=== PATIENT | female | born 1945 | race Two or more races ===

== ENCOUNTER 2024-05-11 21:30 | Emergency (ER) | payer OTHER ==
[~2024-05-11] VITALS: Ht 170.2 cm; Wt 54.0 kg
[2024-05-11 21:38] VITALS: BP 126/65; PULSE 66; RESP 18; O2SAT 95
== END 2024-05-12 03:52 | disposition left against medical advice (07) ==
LOC: ER 21:30
DX: S71.151A Open bite, right thigh, initial encounter (principal); Z53.21 Procedure and treatment not carried out due to patient leaving prior to being seen by health care provider; W54.0XXA Bitten by dog, initial encounter; Y93.89 Activity, other specified; Y92.89 Other specified places as the place of occurrence of the external cause; Y99.8 Other external cause status